=== PATIENT | female | born 1985 | race Caucasian/White ===

== ENCOUNTER 2017-04-24 22:20 | Emergency (ER) | payer OTHER ==
[~2017-04-24] VITALS: Ht 167.6 cm; Wt 141.1 kg
[2017-04-24 22:50] LABS: BASOPHILS % 0.2 % (0.0-1.0); EOSINOPHILS # (AUTO) 0.1 (0.0-0.4); EOSINOPHILS % 0.9 % (0.0-6.0); HEMATOCRIT 37.3 % (34.2-44.1); HEMOGLOBIN 11.9 g/dL (12.0-16.0); LYMPHOCYTES # (AUTO) 2.5 (1.0-3.2); LYMPHOCYTES % 21.4 % (18.0-39.1); MEAN CORPUSCULAR HEMOGLOBIN 26.9 pg (28-32); MEAN CORPUSCULAR HGB CONC 31.9 g/dL (31-35); MEAN CORPUSCULAR VOLUME 84.2 fL (81-99); MONOCYTES # (AUTO) 0.7 (0.2-0.8); MONOCYTES % 6.3 % (4.4-11.3); NEUTROPHILS # (AUTO) 8.3 (2.1-6.9); NEUTROPHILS % 70.9 % (38.7-80.0); PLATELET COUNT 351 x10e3/uL (140-360); RED BLOOD COUNT 4.43 x10e6/uL (3.6-5.1); RED CELL DISTRIBUTION WIDTH 15.5 % (11.7-14.4)
[2017-04-24 23:05] LABS: BILIRUBIN,URINE NEGATIVE (NEGATIVE); KETONES,URINE TRACE (NEGATIVE); LEUKOCYTE ESTERASE ,URINE TRACE (NEGATIVE); NITRITE,URINE NEGATIVE (NEGATIVE); URINE UROBILINOGEN 0.2 mg/dL (0.2 - 1)
[2017-04-24 23:06] LABS: CLARITY,URINE CLEAR (CLEAR); COLOR,URINE YELLOW (YELLOW); PROTEIN,URINE DIPSTICK TRACE (NEGATIVE)
[2017-04-24 23:11] LABS: ALANINE AMINOTRANSFERASE 19 IU/L (0-55); ALBUMIN 3.2 g/dL (3.5-5.0); ALBUMIN/GLOBULIN RATIO 0.7 (0.8-2.0); ALKALINE PHOSPHATASE 118 IU/L (40-150); ANION GAP 13.8 mmol/L (8-16); BLOOD UREA NITROGEN 15 mg/dL (7-26); BUN/CREATININE RATIO 21 (6-25); CARBON DIOXIDE 24 mmol/L (22-29); CHLORIDE 104 mmol/L (98-107); CREATININE, SERUM 0.71 mg/dL (0.57-1.11); EST GLOMERULAR FILTRATION RATE > 60 ML/MIN (60-); GLUCOSE 125 mg/dL (74-118); POTASSIUM 3.8 mmol/L (3.5-5.1); SODIUM 138 mmol/L (136-145)
[2017-04-24 23:15] LABS: BACTERIA,URINE FEW /HPF; EPITHELIAL CELLS,URINE FEW /LPF; MUCUS,URINE MODERATE (RARE); RBC,URINE 0-5 /HPF (0-5)
[2017-04-24 23:21] LABS: AMYLASE 28 U/L (25-125); LIPASE 9 U/L (8-78)
[2017-04-25] MEDS ORDERED: SODIUM CHLORIDE 0.9% 1000ML 1,000 ML IV STA (00:23)
[2017-04-25] MEDS ORDERED: PANTOPRAZOLE 40 MG 10ML VIAL IV STA (00:23)
[2017-04-25] MEDS ORDERED: ONDANSETRON HCL INJ 2 MG/ML VIAL IV STA (00:23)
[2017-04-25] MEDS ORDERED: DICYCLOMINE HCL 20 MG/2 ML VIAL IM ONE (00:30)
== END 2017-04-25 02:15 | disposition home or self-care (01) ==
LOC: ER 22:20
DX: K52.9 Noninfective gastroenteritis and colitis, unspecified (principal); E86.0 Dehydration; R10.32 Left lower quadrant pain; R10.13 Epigastric pain
CPT/HCPCS: 36415; 80053; 81001; 82150; 83690; 84702; 85025; 87086; 99284; J0500; J2405; J7030